=== PATIENT | female | born 1985 | race Two or more races ===

== ENCOUNTER 2019-07-27 01:38 | Emergency (ER) | payer SELFPAY ==
[~2019-07-27] VITALS: Ht 154.9 cm; Wt 101.8 kg
[2019-07-27] MEDS ORDERED: DexAMETHasone SOD PHOS 10MG/1ML VIAL INJ IM ONE (03:45)
[2019-07-27] MEDS ORDERED: diphenhdrAMINE HCL 50 MG/1 ML VL IM ONE (03:45)
[2019-07-27 04:52] VITALS: BP 141/66
== END 2019-07-27 05:16 | disposition home or self-care (01) ==
LOC: ER 01:53
DX: J06.9 Acute upper respiratory infection, unspecified (principal)
CPT/HCPCS: 96372; 99283; J1100; J1200